=== PATIENT | female | born 1965 | race Caucasian/White ===

== ENCOUNTER 2016-09-25 12:07 | Inpatient (IN) | payer OTHER ==
[~2016-09-25] VITALS: Ht 172.7 cm; Wt 107.3 kg
[~2016-09-25 12:07] MED LIST: ACID CONTROL150 MG PO; ACID REDUCER 1150 MG PO; ADVAIR 250/501 DISK IH; ALLERGY RELIEF10 M1 PO; ALPRAZOLAM0.5 MG PO; AMLODIPINE BESY10 MG PO; AMOXICILLIN250 MG PO; ATROVENT H200 INHALA IH; Atrovent HFA Inhaler IH; BACTRIM,SEPT1 TABLET PO; BUPROPION HCL150 M2 PO; CALCIUM + D PO; CARVEDILOL6.25 MG PO; CEFDINIR300 MG PO; CELEBREX200 MG PO; CLARITIN10 M3 PO; CLARITIN10 MG PO; CLONIDINE HCL0.1 MG PO; COLACE100 MG PO; COREG6.25 M1 PO; COUMADIN5 MG PO; Claritin,Alavart PO; Colace PO; Coumadin dosing per PO; Coumadin,Jantoven PO; DESYREL100 MG PO; DICLOFENAC SODI75 MG PO; DOCUSATE SODIU100 MG PO; DUONEB 2.5-0.5 M3 ML AEROSOL; Desyrel PO; ELIQUIS2.5 MG PO; EXCEDRIN CAPLE1 EACH PO; FLONASE16 G1 BOTH NARES; FLOVENT DISKUS1 DIS2 IH; FLUOXETINE HCL20 M1 PO; FLUOXETINE HCL20 MG PO; FLUTICASONE PRO16 GM BOTH NARES; FUROSEMIDE20 MG PO; FUROSEMIDE40 MG PO; Feosol PO; Flonase BOTH NARES; GABAPENTIN100 MG PO; GABAPENTIN400 MG PO; HYDROCHLOROTH12.5 M1 PO; HYDROCODON-ACE1 EAC7 PO; Habitrol,Nicoderm CQ TD; K-DUR20 MEQ PO; KLOR-CON M2020 MEQ PO; LASIX10 MG PO; LASIX20 MG PO; LEVAQUIN750 MG PO; LEVOFLOXACIN750 MG PO; LIDODERM 5% P1 PATCH TD; LISINOPRIL-HCT1 EAC3 PO; LISINOPRIL20 MG PO; LORATADINE10 M2; LORATADINE10 M2 PO; LOVENOX120 MG/0.8 SC; LYRICA200 MG PO; Lasix PO; MORPHINE SULFAT15 M1 PO; MOTRIN IB200 MG PO; MS CONTIN,ORAMO15 M1 PO; MS CONTIN,ORAMO30 MG PO; NEURONTIN100 MG PO; NEURONTIN400 MG PO; NOHOMEMEDS; NORTRIPTYLINE H10 MG PO; Neurontin PO; ONE DAILY FOR1 EAC1 PO; OXYCODONE-ACET1 EACH PO; OXYCODONE-APAP1 EACH PO; PERCOCET 10/1 TABLET PO; PERCOCET 5/31 TABLET PO; PERCOCET 7.51 TABLET PO; PRINZIDE 20-121 EACH PO; PRISTIQ50 MG PO; PROMETHAZINE V180 ML PO; PROZAC10 MG PO; PROZAC20 MG PO; QUETIAPINE FUM200 MG PO; RANITIDINE HCL150 M1 PO; RANITIDINE HCL150 MG PO; REQUIP1 MG PO; ROXICET 5-3251 EACH PO; SERTRALINE HCL50 MG PO; SILVER SULFADIA50 GM TP; Senokot S,Pericolace PO; TRAMADOL HCL50 MG PO; TRAZODONE HCL100 MG PO; TYLENOL WITH C1 EACH PO; ULTRAM50 MG PO; VENTOLIN HFA18 GM IH; VERAMYST10 GM BOTH NARES; VOLTAREN75 MG PO; Vicodin,Norco 5/325 PO; Vitamin D PO; WARFARIN SODIUM5 MG PO; XANAX0.5 MG PO; XANAX1 MG PO; Xanax PO; ZANTAC150 MG PO; ZESTORETIC 20-1 EAC2 PO; ZESTORETIC,P1 TABLET PO; ZESTRIL,PRINIVI20 MG PO; ZOFRAN ODT4 MG PO; ZOFRAN4 MG PO; ZOLOFT50 MG PO; Zestoretic,Prinzide PO; Zestril,Prinivil PO
[2016-09-25 12:55] LABS: EOSINOPHIL (%) 0.1 % (0-5); HEMATOCRIT 38.8 % (36.0-46.0); IMMATURE GRANULOCYTE (%) 0.8 % (0.0-0.7); IMMATURE GRANULOCYTE COUNT 0.1 K/uL; INSTRUMENT ABS NEUTROPHIL CT 6.5 K/uL; MCV 103.2 FL (83-99); MEAN PLAT.VOLUME 13.6 uM^3 (9.5-12.4); MONOCYTE (%) 7.6 % (3-12); MONOCYTE COUNT 0.6 K/uL (0-0.8); NEUTROPHIL (%) 78.9 % (45-76); NEUTROPHIL COUNT 6.5 K/uL (1.8-6.4); PLATELET COUNT 200 K/uL (156-360); RBC DIS.WIDTH-CV 15.8 % (11.8-14.6); RBC DIS.WIDTH-SD 59.8 % (39-53); RED BLOOD COUNT 3.76 M/uL (3.80-5.20); WHITE BLOOD COUNT 8.3 K/uL (4.1-10.2)
[2016-09-25 13:38] LABS: INTER. NORMALIZED RATIO 1.1; PROTHROMBIN TIME 11.2 (9.2-11.2)
[2016-09-25 13:41] LABS: CHLORIDE 101 mEq/L (99-109); SODIUM 130 mEq/L (136-147)
[2016-09-25 13:43] LABS: GLUCOSE 109 mg/dL (70-99)
[2016-09-25 13:44] LABS: ANION GAP 13 MEQ/L (2-14); POTASSIUM 6.3 mEq/L (3.7-5.4)
[2016-09-25 13:45] LABS: TOTAL BILIRUBIN 0.4 mg/dL (0.0-1.0)
[2016-09-25 13:46] LABS: ALKALINE PHOSPHATASE 87 IU/L (3-129)
[2016-09-25 13:47] LABS: GFR ESTIMATE (CALCULATED) 28 mL/min/
[2016-09-25 13:48] LABS: UREA NITROGEN (BUN) 62 mg/dL (9-23)
[2016-09-25] MEDS ORDERED: LYRICA200 MG PO (14:56)
[2016-09-25] MEDS ORDERED: LASIX40 MG PO (14:57)
[2016-09-25 15:31] LABS: TROP-I INTERPRETATION NEGATIVE; TROPONIN-I 0.23 ng/mL (0.0-0.30)
[2016-09-25 17:59] LABS: ADD MIUA? YES; BILIRUBIN NEGATIVE; BLOOD SMALL; COLOR YELLOW ((YELLOW)); GLUCOSE (STRIP) NEGATIVE; KETONES NEGATIVE; LEUKOCYTES LARGE; NITRITE NEGATIVE; PROTEIN (STRIP) NEGATIVE; SPECIFIC GRAVITY 1.011 (1.000-1.030); UROBILINOGEN 0.2 MG/DL (0.2-1.0)
[2016-09-25 18:19] LABS: BACTERIA 1+ /HPF; CASTS NONE SEEN /LPF; CRYSTALS NONE SEEN; EPITHELIAL CELLS 1+ /HPF; MUCUS NONE SEEN /LPF; RED BLOOD CELLS 0-5 /HPF (0-5)
[2016-09-25 18:20] LABS: CREATINE KINASE 426 IU/L (1-294)
[2016-09-25 18:45] LABS: UR CREATININE CONCENTRATION 58.8 MG/DL
[2016-09-25 20:02] LABS: CHLORIDE 102 mEq/L (99-109); POTASSIUM 5.3 mEq/L (3.7-5.4); SODIUM 135 mEq/L (136-147)
[2016-09-25 20:04] LABS: GLUCOSE 105 mg/dL (70-99)
[2016-09-25 20:05] LABS: ANION GAP 12 MEQ/L (2-14)
[2016-09-25 20:08] LABS: GFR ESTIMATE (CALCULATED) 46 mL/min/; UREA NITROGEN (BUN) 56 mg/dL (9-23)
[2016-09-25 21:00] VITALS: BP 146/71
[2016-09-25 21:29] LABS: TROP-I INTERPRETATION NEGATIVE; TROPONIN-I 0.25 ng/mL (0.0-0.30)
[2016-09-25 21:58] LABS: CK-MB 11.5 ng/mL (0.0-4.9)
[2016-09-25 22:16] LABS: CREATINE KINASE 423 IU/L (1-294); TOTAL CK 423 IU/L (1-294)
[2016-09-25 22:57] LABS: METH RESISTANT S AUREUS PCR POSITIVE (NEGATIVE); PROBE CHECK PASS
[2016-09-26] VITALS (7 sets, daily range): BP systolic 118–170; BP diastolic 59–88
[2016-09-26 04:41] LABS: EOSINOPHIL (%) 0 % (0-5); HEMATOCRIT 43.6 % (36.0-46.0); IMMATURE GRANULOCYTE (%) 0.7 % (0.0-0.7); IMMATURE GRANULOCYTE COUNT 0.1 K/uL; INSTRUMENT ABS NEUTROPHIL CT 6.5 K/uL; LYMPHOCYTE COUNT 0.8 K/uL (1.0-2.8); MCH 32.7 PG (29.0-34.0); MCHC 32.3 G/DL (30.0-36.0); MCV 101.2 FL (83-99); MEAN PLAT.VOLUME 11.2 uM^3 (9.5-12.4); MONOCYTE (%) 7.5 % (3-12); MONOCYTE COUNT 0.6 K/uL (0-0.8); NEUTROPHIL (%) 81.7 % (45-76); NEUTROPHIL COUNT 6.5 K/uL (1.8-6.4); PLATELET COUNT 174 K/uL (156-360); RBC DIS.WIDTH-CV 14.7 % (11.8-14.6); RBC DIS.WIDTH-SD 55.8 % (39-53); RED BLOOD COUNT 4.31 M/uL (3.80-5.20)
[2016-09-26 05:02] LABS: CHLORIDE 105 mEq/L (99-109); POTASSIUM 5.5 mEq/L (3.7-5.4); SODIUM 139 mEq/L (136-147)
[2016-09-26 05:04] LABS: GLUCOSE 92 mg/dL (70-99)
[2016-09-26 05:06] LABS: ANION GAP 14 MEQ/L (2-14); TROP-I INTERPRETATION NEGATIVE
[2016-09-26 05:08] LABS: GFR ESTIMATE (CALCULATED) > 59 mL/min/
[2016-09-26 05:09] LABS: UREA NITROGEN (BUN) 37 mg/dL (9-23)
[2016-09-26 05:19] LABS: CREATINE KINASE 539 IU/L (1-294); TOTAL CK 539 IU/L (1-294)
[2016-09-26 05:24] LABS: CK-MB 6.1 ng/mL (0.0-4.9)
[2016-09-26 07:46] LABS: POINT-OF-CARE METER ID UU13113781
[2016-09-27 03:26] VITALS: BP 132/60
[2016-09-27 06:52] LABS: EOSINOPHIL (%) 0.2 % (0-5); HEMATOCRIT 39.7 % (36.0-46.0); IMMATURE GRANULOCYTE (%) 0.4 % (0.0-0.7); INSTRUMENT ABS NEUTROPHIL CT 3.3 K/uL; LYMPHOCYTE COUNT 0.8 K/uL (1.0-2.8); MCH 32.6 PG (29.0-34.0); MCHC 32.2 G/DL (30.0-36.0); MEAN PLAT.VOLUME 11.6 uM^3 (9.5-12.4); MONOCYTE (%) 13.3 % (3-12); MONOCYTE COUNT 0.6 K/uL (0-0.8); NEUTROPHIL COUNT 3.3 K/uL (1.8-6.4); PLATELET COUNT 159 K/uL (156-360); RBC DIS.WIDTH-CV 14.6 % (11.8-14.6); RBC DIS.WIDTH-SD 54.8 % (39-53); RED BLOOD COUNT 3.93 M/uL (3.80-5.20)
[2016-09-27 06:54] LABS: WHITE BLOOD COUNT 4.7 K/uL (4.1-10.2)
[2016-09-27 07:12] LABS: ANION GAP 10 MEQ/L (2-14); CHLORIDE 107 MEQ/L (99-109); CREATINE KINASE 304 IU/L (1-294); GFR ESTIMATE (CALCULATED) > 59 mL/min/; GLUCOSE 107 mg/dL (70-99); SAMPLE HEMOLYSIS CHECK 0; SAMPLE ICTERIC CHECK 0; SAMPLE LIPEMIA CHECK 0; SODIUM 144 MEQ/L (136-147)
[2016-09-27 07:14] LABS: POTASSIUM 3.8 MEQ/L (3.7-5.4); UREA NITROGEN (BUN) 13 mg/dL (9-23)
[2016-09-27 07:32] VITALS: BP 142/80
[2016-09-27 11:25] VITALS: BP 160/80
[2016-09-27 16:08] VITALS: BP 197/92
[2016-09-27 19:15] VITALS: BP 190/79
[2016-09-27 23:00] VITALS: BP 183/73
[2016-09-28 01:30] VITALS: BP 167/81
[2016-09-28 03:30] VITALS: BP 185/104
== END 2016-09-28 07:00 | disposition left against medical advice (07) | DRG 682 ==
LOC: EME 12:07 → 4EAST 15:22 → EDOF 15:22 → 4EAST 20:32
PROVIDERS: Emergency Medicine; Family Medicine; Internal Medicine
DX: N17.9 Acute kidney failure, unspecified (principal); J96.91 Respiratory failure, unspecified with hypoxia; G93.41 Metabolic encephalopathy; I95.9 Hypotension, unspecified; E87.2 Acidosis; E87.1 Hypo-osmolality and hyponatremia; T50.905A Adverse effect of unspecified drugs, medicaments and biological substances, initial encounter; E86.0 Dehydration; E87.5 Hyperkalemia; J44.9 Chronic obstructive pulmonary disease, unspecified; G89.4 Chronic pain syndrome; F41.9 Anxiety disorder, unspecified; R94.31 Abnormal electrocardiogram [ECG] [EKG]; F31.9 Bipolar disorder, unspecified; F20.9 Schizophrenia, unspecified; T81.89XD Other complications of procedures, not elsewhere classified, subsequent encounter; S31.100D Unspecified open wound of abdominal wall, right upper quadrant without penetration into peritoneal cavity, subsequent encounter; S31.103D Unspecified open wound of abdominal wall, right lower quadrant without penetration into peritoneal cavity, subsequent encounter; S21.102D Unspecified open wound of left front wall of thorax without penetration into thoracic cavity, subsequent encounter; R53.1 Weakness; Z86.718 Personal history of other venous thrombosis and embolism; Z93.3 Colostomy status; I10 Essential (primary) hypertension; Z85.41 Personal history of malignant neoplasm of cervix uteri; K21.9 Gastro-esophageal reflux disease without esophagitis; Z87.891 Personal history of nicotine dependence; J98.11 Atelectasis; M19.90 Unspecified osteoarthritis, unspecified site; R32 Unspecified urinary incontinence; G25.81 Restless legs syndrome; Z90.49 Acquired absence of other specified parts of digestive tract; G25.3 Myoclonus; E86.1 Hypovolemia; E66.01 Morbid (severe) obesity due to excess calories; Z68.36 Body mass index [BMI] 36.0-36.9, adult; T40.601A Poisoning by unspecified narcotics, accidental (unintentional), initial encounter
CPT/HCPCS: 36600; 70450; 71010; 80048; 80048 91; 80053; 80069; 81003; 82550; 82550 91; 82553; 82570; 82803; 82948; 83935; 84156; 84300; 84484; 84540; 85025; 85610; 87641; 93005; 94640; 94640 76; 94799; 99202; 99281; 99285; A6260; J0360; J1956; J2060; J2310; J2405; J7042

== ENCOUNTER 2016-10-21 00:21 | Inpatient (IN) | payer OTHER ==
[~2016-10-21] VITALS: Ht 167.6 cm; Wt 108.3 kg
[~2016-10-21 00:21] MED LIST changes: +LASIX40 MG PO
[2016-10-21 00:46] LABS: POTASSIUM 3.4 mEq/L (3.7-5.4)
[2016-10-21 01:07] LABS: EOSINOPHIL COUNT 0.1 K/uL (0-0.3); HEMATOCRIT 47.9 % (36.0-46.0); IMMATURE GRANULOCYTE COUNT 0.1 K/uL; INSTRUMENT ABS NEUTROPHIL CT 7.1 K/uL; MCH 33.4 PG (29.0-34.0); MCHC 33.4 G/DL (30.0-36.0); MONOCYTE (%) 4.6 % (3-12); MONOCYTE COUNT 0.5 K/uL (0-0.8); NEUTROPHIL (%) 72.5 % (45-76); NEUTROPHIL COUNT 7.1 K/uL (1.8-6.4); PLATELET COUNT 231 K/uL (156-360); RBC DIS.WIDTH-CV 14.1 % (11.8-14.6); RBC DIS.WIDTH-SD 52.3 % (39-53); RED BLOOD COUNT 4.79 M/uL (3.80-5.20); WHITE BLOOD COUNT 9.8 K/uL (4.1-10.2)
[2016-10-21 01:13] LABS: CHLORIDE 97 mEq/L (99-109); POTASSIUM 3.4 mEq/L (3.7-5.4); SODIUM 139 mEq/L (136-147)
[2016-10-21 01:15] LABS: INTER. NORMALIZED RATIO 1.1; PROTHROMBIN TIME 11.4 (9.2-11.2); PTT 28.5 (25-32)
[2016-10-21 01:16] LABS: ANION GAP 14 MEQ/L (2-14)
[2016-10-21 01:17] LABS: TOTAL BILIRUBIN 0.4 mg/dL (0.0-1.0)
[2016-10-21 01:21] LABS: GLUCOSE 95 mg/dL (70-99)
[2016-10-21 01:24] LABS: ALKALINE PHOSPHATASE 128 IU/L (3-129); GFR ESTIMATE (CALCULATED) 50 mL/min/
[2016-10-21 01:25] LABS: TROP-I INTERPRETATION NEGATIVE; TROPONIN-I < 0.01 ng/mL (0.0-0.30); UREA NITROGEN (BUN) 22 mg/dL (9-23)
[2016-10-21 01:28] LABS: LIPASE 17 U/L (1.0-51.0)
[2016-10-21] MEDS ORDERED: PROTONIX40 MG PO (02:38)
[2016-10-21] MEDS ORDERED: LEVAQUIN750 MG PO (02:38)
[2016-10-21 03:12] VITALS: BP 116/68
== END 2016-10-21 03:17 | disposition left against medical advice (07) | DRG 871 ==
LOC: EME 00:21 → EDOF 01:39
PROVIDERS: Emergency Medicine
DX: A41.9 Sepsis, unspecified organism (principal); J18.9 Pneumonia, unspecified organism; J44.0 Chronic obstructive pulmonary disease with (acute) lower respiratory infection; Q79.59 Other congenital malformations of abdominal wall; I95.9 Hypotension, unspecified; E86.0 Dehydration; R09.02 Hypoxemia; R10.9 Unspecified abdominal pain; F32.9 Major depressive disorder, single episode, unspecified; I10 Essential (primary) hypertension; K21.9 Gastro-esophageal reflux disease without esophagitis; I70.0 Atherosclerosis of aorta; F17.200 Nicotine dependence, unspecified, uncomplicated; Z96.641 Presence of right artificial hip joint; Z88.6 Allergy status to analgesic agent; Z93.3 Colostomy status; Z85.41 Personal history of malignant neoplasm of cervix uteri; K25.9 Gastric ulcer, unspecified as acute or chronic, without hemorrhage or perforation
CPT/HCPCS: 71010; 71275; 74177; 80047; 80053; 81003; 83605; 83690; 84484; 85025; 85610; 85730; 87040; 93005; 99281; 99285; J2405; J2543